=== PATIENT | female | born 1930 | race Caucasian/White ===

== ENCOUNTER 2016-11-07 05:32 | Emergency (ER) | payer OTHER ==
[~2016-11-07] VITALS: Ht 157.5 cm; Wt 56.7 kg
[2016-11-07] MEDS ORDERED: ASPIRIN 81 MG TAB.CHEW ONE (05:41)
[2016-11-07] MEDS ORDERED: IV NS 0.9% 500 ML IV ONE (05:41)
[2016-11-07] MEDS ORDERED: IV SET PRIMARY 1 EA INFUS.SET MC ONE (05:41)
--- NOTE | 2016-11-07 05:42 | NUR ---
Note undone in EDM - 11/07/16 at 0604 by ZACH bb ra from home for chest pain, sob per ems rapid heart rate. PT BIBRA FROM HOME FOR CHEST PAIN/ SOB SINCE 1AM. PER EMS NOTED RAPID HEART RATE. PT AOX4 RR EVEN AND UNLABORED. NO SOB NOTED. NAD NOTED. NO NVD AT THIS TIME. PT NOT DIAPHORETIC. PT GOWNED AND PLACED ON MONITOR WAITING FOR MD LOO.
--- NOTE | 2016-11-07 05:42 | NUR ---
PT BIBRA FROM HOME FOR CHEST PAIN/ SOB SINCE 1AM. PER EMS NOTED RAPID HEART RATE. PT AOX4 RR EVEN AND UNLABORED. NO SOB NOTED. NAD NOTED. NO NVD AT THIS TIME. PT NOT DIAPHORETIC. PT GOWNED AND PLACED ON MONITOR WAITING FOR MD LOO. PER RA PLACED IV ON LEFT HADN 20G. INTACT AND PATENT.
--- NOTE | 2016-11-07 05:43 | NUR ---
DR. CARRION AT BEDSIDE FOR EVAL.
[2016-11-07] MEDS ORDERED: IOHEXOL-350 100 ML VIAL IV ONE (05:51)
[2016-11-07] MEDS ORDERED: IV NS 0.9% 250 ML IV ONE (05:51)
--- NOTE | 2016-11-07 05:59 | NUR ---
IV STARTED ON RIGHT UPPER ARM. LABS DRAWN. URINE COLLECTED. CALLED LAB FOR MANAGER TRANSFUSION.
[2016-11-07] MEDS ORDERED: IV NS 0.9% 500 ML BAG IV ONE (06:00)
[2016-11-07] MEDS ORDERED: ASPIRIN 81 MG TAB.CHEW PO ONE (06:00)
[2016-11-07 06:09] LABS: BASOPHILS % (AUTO) 0.2 % (0.0-2.0); EOSINOPHILS % (AUTO) 0.8 % (0.0-6.0); HEMATOCRIT 34 % (33-45); HEMOGLOBIN 11.6 g/dL (11.5-14.8); LYMPHOCYTES # (AUTO) 1.3 /CMM (0.8-4.8); MEAN CORPUSCULAR HEMOGLOBIN 32 PG (26.0-33.0); MEAN CORPUSCULAR HGB CONC 35 g/dl (31.0-36.0); MEAN CORPUSCULAR VOLUME 93 fL (82-100); MONOCYTES # (AUTO) 0.4 /CMM (0.1-1.30); MONOCYTES % (AUTO) 7.3 % (2.0-12.0); NEUTROPHILS # (AUTO) 3.8 /CMM (1.8-8.9); NEUTROPHILS % (AUTO) 68.7 % (43.0-81.0); PLATELET COUNT (AUTO) 90 /CMM (150-450); RDW COEFFICIENT OF VARIATION 17.1 (11.5-15.0); RED BLOOD CELL COUNT(AUTO) 3.61 MIL/uL (4.0-5.2); WHITE BLOOD COUNT (AUTO) 5.6 K/uL (4.3-11.0)
--- NOTE | 2016-11-07 06:15 | NUR ---
XRAY AT BEDSIDE
[2016-11-07 06:20] LABS: CALCIUM, SERUM 9.1 mg/dL (8.5-10.1); CARBON DIOXIDE 22 mmol/L (21-32); CHLORIDE 107 mmol/L (98-107); GLUCOSE 123 mg/dL (74-106); POTASSIUM 3.4 mmol/L (3.5-5.1); SODIUM SERUM 143 mmol/L (136-145); UREA NITROGEN, BLOOD 22 mg/dL (7-18)
[2016-11-07 06:21] LABS: BAND % (MANUAL) 1 % (0.0-5.0); EOSINOPHILS % (MANUAL) 1 % (0-4); INR 0.93 (0.87-1.13); LYMPHOCYTES % (MANUAL) 22 % (16-48); MONOCYTES % (MANUAL) 3 % (0-11.0); NEUTROPHILS % (MANUAL) 73 (42-76); PROTHROMBIN TIME 9.9 SECS (9.5-12.7)
[2016-11-07 06:26] LABS: ALANINE AMINOTRANSFERASE 20 U/L (12-78); ALBUMIN 3.4 g/dL (3.4-5.0); ALKALINE PHOSPHATASE 76 U/L (46-116); ASPARTATE AMINOTRANSFERASE 15 U/L (15-37); BILIRUBIN,DIRECT 0.1 mg/dL (0.0-0.2); BILIRUBIN,TOTAL 0.3 mg/dL (0.2-1.0); TOTAL PROTEIN, SERUM 7.4 g/dL (6.4-8.2)
[2016-11-07 06:28] LABS: TROPONIN I < 0.017 ng/mL (0.00-0.056)
--- NOTE | 2016-11-07 06:49 | NUR ---
PT TO CT.
--- NOTE | 2016-11-07 07:03 | NUR ---
PT RETURNED FROM CT.
--- NOTE | 2016-11-07 07:12 | NUR ---
PT APPEARS COMFORTABLE. VSS. REPORT GIVEN TO KIMI RENAE FOR CONTINUE OF CARE.
--- NOTE | 2016-11-07 07:15 | NUR ---
RECEIVED REPORT FROM [facility] FOR [facility]
--- NOTE | 2016-11-07 08:04 | NUR ---
RECEIVED CD IMAGING PLACED IN CHART
--- NOTE | 2016-11-07 09:01 | NUR ---
[facility] CALLED FOR PT TRANSFER. AWAITING [place] DOCTOR CALL BACK
[2016-11-07 09:59] VITALS: BP 125/71
--- NOTE | 2016-11-07 10:00 | NUR ---
CALL FROM OCTOBER RN, GOING TO [facility], ACCEPTED BY DR HAMEED, REPORT TO BE CALLED TO [phone],ETA 1030 FOR ALS [place]
--- NOTE | 2016-11-07 10:24 | NUR ---
report given to lissy quevedo for [place]
--- NOTE | 2016-11-07 10:27 | NUR ---
PT TRANSFER VIA [facility]
== END 2016-11-07 10:30 | disposition short-term general hospital (02) ==
LOC: ER 05:34
DX: R07.9 Chest pain, unspecified (principal); R51 Headache; C34.90 Malignant neoplasm of unspecified part of unspecified bronchus or lung; Z79.82 Long term (current) use of aspirin
CPT/HCPCS: 36415; 70450; 71010; 71275; 80048; 80076; 84484; 85025; 85730; 86850; 93005; 96360; 99291; A4606; J7040; J7050; Q9967; Z7610

== ENCOUNTER 2018-05-09 10:01 | Emergency (ER) | payer OTHER ==
[~2018-05-09] VITALS: Ht 154.9 cm; Wt 49.0 kg
--- NOTE | 2018-05-09 10:17 | NUR ---
PT BIBA RA from home c/o weak and dizzy while in [place] x 1 hours ago BS 167 denies CP or SOB - hx of Afib and lung CA and in between treatment. ALERT AND ORIENTED X 4, VERBALLY RESPONSIVE AND ABLE TO MAKE NEEDS KNOWN. DENIES ANY PAIN AT THIS TIME. HOOKED ON THE MONITOR. VITAL SIGNS CHECKED AND WNL. ROOM AIR, 02 SAT 98%. BREATHING EVENLY AND UNLABORED. KEPT COMFORTABLE. AWAITING FOR MD FOR EVAL. WILL CONTINUE TO MONITOR ACCORDINGLY.
--- NOTE | 2018-05-09 10:19 | NUR ---
DR. GOMEZ AT BEDSIDE FOR EVAL.
[2018-05-09] MEDS ORDERED: IV NS 0.9% 500 ML BAG IV ONE (10:30)
[2018-05-09 10:45] VITALS: BP 132/98
[2018-05-09 10:58] LABS: BASOPHILS # (AUTO) 0.1 /CMM (0.0-0.2); BASOPHILS % (AUTO) 0.6 % (0.0-2.0); EOSINOPHILS % (AUTO) 0.5 % (0.0-6.0); HEMATOCRIT 38 % (33-45); HEMOGLOBIN 12.9 g/dL (11.5-14.8); LYMPHOCYTES # (AUTO) 0.9 /CMM (0.8-4.8); LYMPHOCYTES % (AUTO) 9.4 % (20.0-44.0); MEAN CORPUSCULAR HGB CONC 34 g/dl (31.0-36.0); MEAN CORPUSCULAR VOLUME 102 fL (82-100); MONOCYTES # (AUTO) 0.7 /CMM (0.1-1.30); MONOCYTES % (AUTO) 7.3 % (2.0-12.0); NEUTROPHILS # (AUTO) 8.1 /CMM (1.8-8.9); NEUTROPHILS % (AUTO) 82.2 % (43.0-81.0); PLATELET COUNT (AUTO) 167 /CMM (150-450); RED BLOOD CELL COUNT(AUTO) 3.74 MIL/uL (4.0-5.2); WHITE BLOOD COUNT (AUTO) 9.8 K/uL (4.3-11.0)
--- NOTE | 2018-05-09 11:03 | NUR ---
urine collected via straight cath and sent to lab
[2018-05-09 11:38] LABS: APPEARANCE,URINE Clear (CLEAR); BILIRUBIN,URINE Negative (NEGATIVE); BLOOD, URINE Negative Ery/uL (NEGATIVE); COLOR,URINE Yellow (YELLOW); KETONES,URINE Negative (NEGATIVE); LEUKOCYTE ESTERASE ,URINE Negative (NEGATIVE); NITRITE, URINE Negative (NEGATIVE); PROTEIN,URINE Negative (NEGATIVE); UGLUCOSE Negative (NEGATIVE); UROBILINOGEN,URINE 0.2 EU/dL (0.2)
[2018-05-09 11:45] LABS: CALCIUM, SERUM 7.8 mg/dL (8.5-10.1); CARBON DIOXIDE 25 mmol/L (21-32); CHLORIDE 107 mmol/L (98-107); CREATININE 1.4 mg/dL (0.6-1.3); GLUCOSE 101 mg/dL (74-106); POTASSIUM 4.3 mmol/L (3.5-5.1); SODIUM SERUM 140 mmol/L (136-145); UREA NITROGEN, BLOOD 41 mg/dL (7-18)
--- NOTE | 2018-05-09 12:00 | NUR ---
RECEIVED A CALL FROM THE LAB FOR LACTIC ACID 2.3 AND MADE AWARE.
[2018-05-09 12:05] LABS: ALANINE AMINOTRANSFERASE 51 U/L (12-78); ALBUMIN 2.7 g/dL (3.4-5.0); ALKALINE PHOSPHATASE 63 U/L (46-116); ASPARTATE AMINOTRANSFERASE 14 U/L (15-37); B-TYPE NATRIURETIC PEPTIDE 2283 PG/ML (0-125); BILIRUBIN,DIRECT 0.1 mg/dL (0.0-0.2); BILIRUBIN,TOTAL 0.3 mg/dL (0.2-1.0)
--- NOTE | 2018-05-09 12:13 | NUR ---
CALLED [facility] FOR MD REPORT FOR THIS PATIENT.
--- NOTE | 2018-05-09 13:38 | NUR ---
[facility] STATES IS WAITING FOR [facility] DIVYA GARCIA TO ACCEPT
[2018-05-09] MEDS ORDERED: LEVOFLOXACIN 750 MG /D5W 150ML 150 ML IV ONE (14:00)
[2018-05-09] MEDS ORDERED: PIPERACILLIN /TAZOBACTAM 3.375 G in IV D5W 50 ML IV ONE (14:00)
--- NOTE | 2018-05-09 14:44 | NUR ---
PT ACCEPTED BY Willie BRANTLEY AT [facility] RN FOR REPORT AT [phone] [facility] ETA 1530 ETA
--- NOTE | 2018-05-09 14:52 | NUR ---
REPORT GIVEN TO DOMENICO FROM [facility] FOR [facility].
--- NOTE | 2018-05-09 15:29 | NUR ---
[facility] ON SITE FOR SECURITY ORDERLY.
--- NOTE | 2018-05-09 16:11 | NUR ---
PATIENT DETAILER FURNITURE BY [facility] GOING TO [facility] IN STABLE CONDITION AT THIS TIME, IN NO APPARENT DISTRESS NOTED. DENIES ANY PAIN OR DISCOMFORT, NOR CHEST PAIN.
--- NOTE | 2018-05-15 12:22 | NUR ---
LATE ENTRY: 05/09/18 ZOSYN ADMINISTERED AT 1429 END TIME 1459 RAC [id number]
== END 2018-05-09 16:10 | disposition short-term general hospital (02) ==
LOC: ER 10:05
DX: A41.9 Sepsis, unspecified organism (principal); R65.20 Severe sepsis without septic shock; J18.9 Pneumonia, unspecified organism; I48.91 Unspecified atrial fibrillation; N28.9 Disorder of kidney and ureter, unspecified; R79.89 Other specified abnormal findings of blood chemistry; Z85.118 Personal history of other malignant neoplasm of bronchus and lung; Z98.890 Other specified postprocedural states
CPT/HCPCS: 36415; 71045; 80048; 80076; 81001; 83605; 83880; 84484; 85025; 85730; 87040 ×2; 87086; 93005; 96361; 96365; 96375; 99291; A4606; J1956; J2543; J7060; 81000-TC; Z7610